=== PATIENT | male | born 1995 | race Caucasian/White ===

== ENCOUNTER 2017-01-01 07:19 | Day surgery (SDC) | payer OTHER ==
--- NOTE | 2017-01-01 07:13 | PCM.PREANE ---
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), Sinus Problem (seasonal allergies) - Physical Assessment NPO Status Date: 12/31/16 NPO Status Time: 21:00 Pulse: 86 O2 Sat by Pulse Oximetry: 97 Respiratory Rate: 16 Blood Pressure: 141/80 Temperature: 36.7 C Height: 1.71 m Weight: 78 kg ASA Class: 2 Mental Status: Alert & Oriented x3 Airway Class: Mallampati = 2 Dentition: Reports: Normal Dentition, Caries Thyro-Mental Finger Breadths: 3 Mouth Opening Finger Breadths: 3 ROM/Head Extension: Full Lungs: Clear to Auscultation, Normal Respiratory Effort Cardiovascular: Regular Rate, Regular Rhythm - Lab Values: Labs values reviewed and noted and within acceptable ranges to proceed with scheduled procedure. MRSA = negative - Allergies Allergies/Adverse Reactions: Allergies Allergy/AdvReac Type Severity Reaction Status Date / Time No Known Allergies Allergy Verified 12/31/16 14:39 - Anesthesia Plan Pre-Op Medication Ordered: None - Acknowledgements Anesthesia Type Planned: General Anesthesia Pt an Appropriate Candidate for the Planned Anesthesia: Yes Alternatives and Risks of Anesthesia Discussed w Pt/Guardian: Yes Pt/Guardian Understands and Agrees with Anesthesia Plan: Yes PreAnesthesia Questionnaire - Past Health History Medical/Surgical History: Denies Medical/Surgical History HEENT History: Reports: Other (See Below) Other HEENT History: seasonal allergies Cardiovascular History: Reports: None Respiratory History: Reports: None Gastrointestinal History: Reports: None Genitourinary History: Reports: Other (See Below) Other Genitourinary History: congenitally small kidney, current cre 1.3 [employer] History: Reports: None Musculoskeletal History: Reports: None Neurological History: Reports: None Psychiatric History: Reports: None Endocrine/Metabolic History: Reports: None Hematologic History: Reports: None Immunologic History: Reports: None Oncologic (Cancer) History: Reports: None Dermatologic History: Reports: None - Past Surgical History Head Surgeries/Procedures: Reports: None HEENT Surgical History: Reports: Adenoidectomy, Oral Surgery, Tonsillectomy Cardiovascular Surgical History: Reports: None Respiratory Surgical History: Reports: None GI Surgical History: Reports: None Female Surgical History: Reports: None Male Surgical History: Reports: None Endocrine Surgical History: Reports: None Neurological Surgical History: Reports: None Musculoskeletal Surgical History: Reports: None Oncologic Surgical History: Reports: None Dermatological Surgical History: Reports: None - SUBSTANCE USE Smoking Status *Q: Never Smoker Second Hand Smoke Exposure: No Days Per Week of Alcohol Use: 0 Recreational Drug Use History: No - HOME MEDS Home Medications: Home Meds Acetaminophen/HYDROcodone [Magnolia 325-5 MG] 1 - 2 tab PO Q6H PRN #40 tablet 12/31 [Rx] Cetirizine [ZyrTEC] 10 mg PO DAILY 12/31/16 [History] Cyclobenzaprine [Flexeril] 10 mg PO TID 12/31/16 [History] traMADol HCl [Tramadol HCl] 50 mg PO Q6H PRN 12/31/16 [History] Aspirin [Aspirin EC] 325 mg PO BID #84 tablet. 01/02/17 [Rx] - CURRENT (IN HOUSE) MEDS Current Meds: Current Medications Lactated Ringer's (Ringers, Lactated) 1,000 mls @ 125 mls/hr IV ASDIRECTED CAROLINE Stop: 01/01/17 23:00 Lidocaine/Sodium Bicarbonate (Buffered Lidocaine 1% In Ns 8.4%) 0.25 ml .XX ONETIME PRN PRN Reason: Prior to IV Start Stop: 01/01/17 18:00 Sodium Chloride (Saline Flush) 10 ml FLUSH ASDIRECTED PRN PRN Reason: Keep Vein Open Stop: 01/01/17 18:00 Discontinued Medications Cefazolin Sodium (Ancef) Confirm Administered Dose 2 gm .ROUTE .STK-MED ONE Stop: 01/01/17 07:09 Dexamethasone (Dexamethasone) Confirm Administered Dose 20 mg .ROUTE .STK-MED ONE Stop: 01/01/17 07:09 Fentanyl (Sublimaze) Confirm Administered Dose 100 mcg .ROUTE .STK-MED ONE Stop: 01/01/17 06:49 Fentanyl (Sublimaze) Confirm Administered Dose 250 mcg .ROUTE .STK-MED ONE Stop: 01/01/17 07:10 Hydromorphone HCl (Dilaudid) Confirm Administered Dose 1 mg .ROUTE .[facility]-MED ONE Stop: 01/01/17 07:09 Lidocaine HCl (Xylocaine-Mpf 1%) Confirm Administered Dose 4 mls @ as directed .ROUTE .ST-MED ONE Stop: 01/01/17 06:50 Lidocaine HCl (Xylocaine-Mpf 1%) Confirm Administered Dose 4 mls @ as directed .ROUTE .[facility]-MED ONE Stop: 01/01/17 07:09 Lactated Ringer's (Ringers, Lactated) Confirm Administered Dose 1,000 mls @ as directed .ROUTE .[facility]-MED ONE Stop: 01/01/17 07:09 Lidocaine HCl (Xylocaine-Mpf 0.5%) Confirm Administered Dose 50 ml .ROUTE .[facility]- MED ONE Stop: 01/01/17 06:48 Midazolam HCl (Versed 1 Mg/Ml) Confirm Administered Dose 2 mg .ROUTE .[facility]-MED ONE Stop: 01/01/17 06:48 Midazolam HCl (Versed 1 Mg/Ml) Confirm Administered Dose 2 mg .ROUTE .ST-MED ONE Stop: 01/01/17 07:10 Ondansetron HCl (Zofran) Confirm Administered Dose 4 mg .ROUTE .[facility]-MED ONE Stop: 01/01/17 07:09 Propofol (Diprivan 20 Ml) Confirm Administered Dose 200 mg .ROUTE .ST-MED ONE Stop: 01/01/17 06:49 Propofol (Diprivan 20 Ml) Confirm Administered Dose 200 mg .ROUTE .ST-MED ONE Stop: 01/01/17 06:50 Propofol (Diprivan 20 Ml) Confirm Administered Dose 200 mg .ROUTE .ST-MED ONE Stop: 01/01/17 07:09 Sodium Bicarbonate (Sodium Bicarbonate 8.4%) Confirm Administered Dose 50 meq .ROUTE .ST-MED ONE Stop: 01/01/17 06:48
[~2017-01-01 07:19] MED LIST: Dexamethasone 4 MG/ML 5 ML MDV ONE; HYDROmorphone 1 MG/ML Syringe ONE; Lactated Ringers 1,000 ML IV SCH; Lactated Ringers 1,000 ML ONE; Lidocaine 0.5% 50 ML SDV ONE; Lidocaine 1% 0 ML ONE; Lidocaine 1% 4 ML ONE; Lidocaine 1%/Sod Bicarbonate in NS 8.4% 1 ML Syringe PRN; Midazolam 1 MG/ML 2 ML SDV ONE; Ondansetron 4 MG/2 ML SDV ONE; Propofol 200 MG/20 ML SDV ONE; Sodium Bicarbonate 8.4% 50 MEQ/50 ML SDV ONE; Sodium Chloride 0.9% 10 ML Syringe FLUSH PRN; ceFAZolin 1 GM Vial ONE; fentaNYL 100 MCG/2 ML SDV ONE; fentaNYL 250 MCG/5 ML SDV ONE
[2017-01-01] MEDS ORDERED: EPINEPHrine 1 MG/ML 30 ML MDV ONE (07:33)
[2017-01-01] MEDS ORDERED: Propofol 200 MG/20 ML SDV ONE (08:47)
[2017-01-01] MEDS ORDERED: Albuterol 0.083% 2.5 MG/3 ML Neb Soln NEB PRN (08:59)
[2017-01-01] MEDS ORDERED: Ondansetron 4 MG/2 ML SDV IVPUSH PRN (08:59)
[2017-01-01] MEDS ORDERED: diphenhydrAMINE 50 MG/ML SDV IVPUSH PRN (08:59)
[2017-01-01] MEDS ORDERED: Meperidine PF 50 MG/ML Syringe IVPUSH PRN (08:59)
[2017-01-01] MEDS: Bupivacaine 0.25% 10 ML SDV ONE ×2 (09:11→09:22)
--- NOTE | 2017-01-01 09:44 | PCM.POSTAN ---
POST ANESTHESIA ASSESSMENT - MENTAL STATUS Mental Status: Alert - VITAL SIGNS Pulse Rate: 77 SaO2: 100 Resp Rate: 10 Blood Pressure: 150/77 Temperature: 36.8 C - RESPIRATORY Respiratory Status: Respiratory Rate WNL, Airway Patent, O2 Saturation Stable, Supplemental Oxygen - CARDIOVASCULAR CV Status: Pulse Rate WNL, Blood Pressure Stable - GASTROINTESTINAL GI Status: No Symptoms - POST OP HYDRATION Hydration Status: Adequate & Stable
[2017-01-01] MEDS: fentaNYL 100 MCG/2 ML SDV IVPUSH PRN ×2 (09:47→10:09)
[2017-01-01] MEDS: HYDROmorphone 0.5 MG/0.5 ML Syringe IVPUSH PRN ×2 (09:52→11:00)
[2017-01-01] MEDS ORDERED: Acetaminophen/HYDROcodone 325-5 MG Tab PO PRN (10:06)
[2017-01-01 12:30] VITALS: BP 144/70
--- NOTE | 2017-01-01 12:34 | PCM48HPAN ---
Post Anesthesia Note - EVALUATION WITHIN 48HRS OF ANESTHETIC Vital Signs in Normal Range: Yes Patient Participated in Evaluation: Yes Respiratory Function Stable: Yes Airway Patent: Yes Cardiovascular Function Stable: Yes Hydration Status Stable: Yes Pain Control Satisfactory: Yes Nausea and Vomiting Control Satisfactory: Yes Mental Status Recovered: Yes
--- NOTE | 2017-01-06 18:05 | PCM.OPNOTE ---
- General Post-Op/Procedure Note Date of Surgery/Procedure: 01/01/17 Operative Procedure(s): right knee video arthroscopy with partial lateral meniscecomty Pre Op Diagnosis: right knee lateral meniscus tear Post-Op Diagnosis: Same Anesthesia Technique: General LMA, Local Primary Surgeon: Immanuel Allen Anesthesia Provider: Darlin Parisi Lcpc: Melina Berg in mLs: 5 Complications: None Condition: Good
--- NOTE | 2017-01-06 19:30 | OR ---
DATE OF OPERATION: 01/01/2017 SURGEON: Immanuel Allen MD OPERATION PERFORMED: Right knee video arthroscopy with partial lateral meniscectomy. PREOPERATIVE DIAGNOSIS: Right knee lateral meniscus tear. POSTOPERATIVE DIAGNOSIS: Right knee lateral meniscus tear. WELDER FITTER GAS: Melina Berg LPN. ANESTHESIA PROVIDER: Darlin Parisi CRNA. ESTIMATED BLOOD LOSS: Less than 5 mL. COMPLICATIONS: None. CONDITION: Stable. DESCRIPTION OF PROCEDURE: The patient was identified in the preop holding area. Proper site was marked and identified by the surgeon. The patient was taken back to the operating theater, where after adequate anesthesia, the patient's left lower extremity was placed in a well leg dai. Right lower extremity had a nonsterile tourniquet applied and was then placed in a C-clamp dai. The right lower extremity was then sterilely prepped and draped in the usual sterile fashion. OR time-out was performed. The patient received 2 g IV Ancef. The right lower extremity was exsanguinated. Tourniquet was insufflated to 250 mmHg. Standard anterior lateral portal incision was made near the inferior pole of the patella. The scope trocar was introduced. There was no large effusion noted. Cursory examination showed no chondromalacia of the patellofemoral joint. There were no loose or foreign bodies in the medial and lateral gutter. Attention was turned to the medial compartment at this time. An anterior medial portal was created with the use of a spinal needle. The medial compartment showed no signs of chondromalacia. The medial meniscus showed no signs of tear. The ACL was found to be intact in the notch. At this time, attention was turned to the lateral compartment. In the lateral compartment of the knee, there was noted to be an anterior horn of the medial meniscus tear, just a small flap was noted but it was free-floating and there was also noted to be a tear at the posterior third junction of the lateral meniscus just undersurface tear as well. At this time, partial lateral meniscectomy was performed of both the small undersurface tear of the posterior lateral portion as well as the small anterior tear. The patient's rest of meniscus was found to be intact and stable. There was no root tear noted at this time. Excess saline was drained from the knee. A 3-0 nylon simple suture was used for closure of the skin. The patient had 0.25% Marcaine injected around the incisional site and a sterile soft dressing was applied. The patient tolerated the procedure well and sent to the PACU in stable condition. ANESTHESIA: General LMA with local MMOUMAR /[id number] MTDD
== END 2017-01-01 12:00 | disposition home or self-care (01) ==
LOC: JD.SDS 07:19
PROVIDERS: ATTEND Orthopaedic Surgery
DX: S83.281A Other tear of lateral meniscus, current injury, right knee, initial encounter (principal); J30.2 Other seasonal allergic rhinitis; Z98.890 Other specified postprocedural states; Z79.899 Other long term (current) drug therapy
CPT/HCPCS: 29881; A9270; J0171; J0690; J1100; J1170; J1200; J2250; J2405; J3010; J7120; 01400; J2704

== ENCOUNTER 2019-08-18 21:43 | Emergency (ER) | payer BC, OTHER ==
--- NOTE | 2019-08-18 22:16 | EDM.PDOC ---
ED HPI GENERAL MEDICAL PROBLEM - General Chief Complaint: Lower Extremity Injury/Pain Stated Complaint: ankle injury Time Seen by Provider: 08/18/19 22:04 Source of Information: Reports: Patient History Limitations: Reports: No Limitations - History of Present Illness INITIAL COMMENTS - FREE TEXT/NARRATIVE: Mr. Agustin is a most pleasant 24-year-old man with no significant chronic medical problems, who states that he fell while rollerblading around 17:30 this evening, abrading his anterior left knee and injuring his anterior left ankle. He states that he is otherwise uninjured, stating that he did not strike his head or abrade his wrists. The patient took Tylenol and applied ice to his ankle prior to coming to the ED. He does not recall when his last tetanus vaccination was, but he declined an offer to receive one here today. The patient does not have a PCP. Left Ankle Pain Score (Numeric/FACES): 7 - Related Data Allergies Allergy/AdvReac Type Severity Reaction Status Date / Time No Known Allergies Allergy Verified 12/31/16 14:39 Home Meds: Home Meds Cetirizine [ZyrTEC] 10 mg PO DAILY 12/31/16 [History] Past Medical History HEENT History: Reports: Allergic Rhinitis - Past Surgical History HEENT Surgical History: Reports: Adenoidectomy, Oral Surgery (wisdom teeth extraction), Tonsillectomy Musculoskeletal Surgical History: Reports: Arthroscopic Knee (right) Social & Family History - Tobacco Use Smoking Status *Q: Never Smoker Tobacco Use Within Last Twelve Months: Vaping (nicotine) - Caffeine Use Caffeine Use: Reports: None - Alcohol Use Alcohol Use History: Yes Alcohol Use Frequency: Socially - Recreational Drug Use Recreational Drug Use: No - Living Situation & Occupation Living situation: Reports: Single, with Significant Other (Girlfriend) Occupation: Employed ([employer]) Review of Systems - Review of Systems Review Of Systems: Comprehensive ROS is negative, except as noted in HPI. ED EXAM, GENERAL - Physical Exam Exam: See Below Exam Limited By: No Limitations General Appearance: Alert, WD/WN, No Apparent Distress Extremities: Other (There is an approximately 3 cm diameter abrasion to the patient's anterior left knee. It is weeping, but not actively bleeding. No visible abnormality to the patient's left ankle, such as swelling, erythema, ecchymosis, or abrasion, however, the patient reports tenderness to palpation of the anterior syndesmosis. No tenderness to the lateral, medial, or posterior ankle. Normal left ankle range of motion. Excellent distal pulses; neurovascular status of the left lower extremity is intact.) Course - Vital Signs Last Recorded V/S: Last Vital Signs Temp 36.8 C 08/18/19 22:18 Pulse 86 08/18/19 22:18 Resp 20 08/18/19 22:18 BP 132/78 08/18/19 22:18 Pulse Ox 97 08/18/19 22:18 - Orders/Labs/Meds Orders: Active Orders 24 hr Category Date Time Status DME for Discharge [COMM] Stat Oth 08/18/19 22:12 Ordered - Re-Assessments/Exams Free Text/Narrative Re-Assessment/Exam: 08/18/19 22:12 As above, the patient fell while rollerblading earlier this evening, abrading his left knee and injuring his anterior left ankle. He appears to have a mild sprain to his anterior syndesmosis. There is no suggestion of a fracture, and the patient declined an offer for an x-ray. He will be placed into a steroid brace, which I am recommending he wear for about a week before walking, as tolerated, without the brace. He should elevate and ice his ankle as much as possible for the next couple of days, to help minimize swelling, take over-the- counter Tylenol or ibuprofen as needed for discomfort. With respect to his knee abrasion, he should keep it clean with ordinary soap and water when he bathes, pat it dry, apply a thin film of bacitracin, then cover with a nonstick dressing, daily. If he follows this advice, antibiotics should not be necessary. Departure - Departure Time of Disposition: 22:14 Disposition: Home, Self-Care 01 Condition: Good Clinical Impression: Abrasion of left knee, Sprain of left ankle - Discharge Information *PRESCRIPTION DRUG MONITORING PROGRAM REVIEWED*: Not Applicable *COPY OF PRESCRIPTION DRUG MONITORING REPORT IN PATIENT STEVE: Not Applicable Instructions: Ankle Sprain, Abrasion, [id number] Referrals: PCP,None [Primary Care Provider] - Forms: ED Department Discharge Additional Instructions: You were seen in the emergency room after falling while rollerblading, abrading your left knee and injuring your left ankle. Based on your history and physical examination, you have a mild sprain to your left anterior ankle. It is not broken. You have been placed into a stirrup brace. Apply this every morning and take it off at bedtime. Wear it for about a week, then begin walking, as tolerated, without the brace. We recommend that you elevate and ice your left ankle as much as possible over the next 2 days, to help minimize swelling. Take [id number] Tylenol or ibuprofen as needed for discomfort. For your knee, we recommend that you keep it clean with ordinary soap and water when you bathe. Pat dry, then cover with a thin film of [id number] bacitracin ointment, before covering with a clean nonstick dressing, daily. If any other problems, please do not hesitate to return to the ER. Sepsis Event Note - Focused Exam Vital Signs: Vital Signs Temp Pulse Resp BP Pulse Ox 08/18/19 22:18 36.8 C 86 20 132/78 97 Date Exam was Performed: 08/18/19 Time Exam was Performed: 22:36 - My Orders Last 24 Hours: My Active Orders 08/18/19 22:12 DME for Discharge [COMM] Stat - Assessment/Plan Last 24 Hours: My Active Orders 08/18/19 22:12 DME for Discharge [COMM] Stat
[2019-08-18 22:26] VITALS: BP 132/78; PULSE 86
== END 2019-08-18 22:33 | disposition home or self-care (01) ==
LOC: JD.ED 21:43
DX: S93.402A Sprain of unspecified ligament of left ankle, initial encounter (principal); S80.212A Abrasion, left knee, initial encounter; V00.121A Fall from non-in-line roller-skates, initial encounter; Y93.51 Activity, roller skating (inline) and skateboarding
CPT/HCPCS: 99282; 99283